=== PATIENT | female | born 1955 | race African-American/Black ===

== ENCOUNTER 2021-07-10 01:53 | Emergency (ER) | payer MEDICARE, MEDICAID ==
[~2021-07-10] VITALS: Ht 160 cm; Wt 66.0 kg
[2021-07-10 02:29] VITALS: BP 154/63
[2021-07-10] MEDS ORDERED: DIPH103G TP (02:39)
[2021-07-10] MEDS ORDERED: CETI10CA11 MT (02:39)
[2021-07-10] MEDS ORDERED: DIPHENHYDRAMINE 25MG CAPSULE PO ONE (02:45)
== END 2021-07-10 02:49 | disposition home or self-care (01) ==
LOC: ER 01:53
DX: L29.9 Pruritus, unspecified (principal); I10 Essential (primary) hypertension; Z88.0 Allergy status to penicillin; Z88.1 Allergy status to other antibiotic agents; Z91.041 Radiographic dye allergy status; Z91.040 Latex allergy status; Z98.890 Other specified postprocedural states
CPT/HCPCS: 99282; Q0163